=== PATIENT | male | born 1995 | race Caucasian/White ===

== ENCOUNTER 2019-02-16 20:25 | Emergency (ER) | payer OTHER ==
[~2019-02-16] VITALS: Ht 185.4 cm; Wt 74.8 kg
[2019-02-16 20:45] VITALS: BP 130/86
--- NOTE | 2019-02-16 20:48 | NUR ---
PT AMBULATED TO LOBBY.
--- NOTE | 2019-02-16 21:07 | NUR ---
pt to er bed 9 with steady gait
--- NOTE | 2019-02-16 21:20 | NUR ---
PT CAME TO ER FOR INGROWN HAIR IN PUBIC AREA X 3 DAYS. AREA IS SWOLLEN AND RED. PT DENIES ANY PAIN, PAIN LEVEL 0/10 JUST ITCHING. NKA. NO MED HX. SAFETY MEASURES IN PLACE. PA EVALUATED PT.
--- NOTE | 2019-02-16 21:48 | NUR ---
Patient discharged with v/s stable. Written and verbal after care instructions given and explained. Educated for pt not to shave area with ingrown hair and take antibiotics as prescribed. Patient alert, oriented and verbalized understanding of instructions. Ambulatory with steady gait. All questions addressed prior to discharge. ID band removed. Patient advised to follow up with PMD. Rx of KEFLEX AND IBUPROFEN WAS given. Patient educated on indication of medication including possible reaction and side effects. Opportunity to ask questions provided and answered.
[2019-02-16 21:49] VITALS: BP 130/86
== END 2019-02-16 21:48 | disposition home or self-care (01) ==
LOC: MED 20:25
DX: L03.314 Cellulitis of groin (principal)
CPT/HCPCS: 99283

== ENCOUNTER 2019-04-25 18:22 | Emergency (ER) | payer OTHER ==
[~2019-04-25] VITALS: Ht 182.9 cm; Wt 77.1 kg
[2019-04-25 18:24] VITALS: BP 129/62
--- NOTE | 2019-04-25 18:31 | NUR ---
WAIT AT LOBBY.
--- NOTE | 2019-04-25 18:49 | NUR ---
PT AMBULATED TO ER BED 09
--- NOTE | 2019-04-25 18:59 | NUR ---
23/M C/O RT TEMPORAL HEAD PAIN & DIZZINESS X TODAY. DENIES RECENT TRAUMA. STATES TRAUMA TO HEAD WITH LOC 1 YEAR AGO AND HAS BEEN HAVING INT HEADACHES SINCE THEN. HAS NOT HAD HEAD IMAGING DONE. CURRENTLY THE PAIN IS AT RT TEMPORAL REGION, THROBBING. DENIES N/V, PHOTOPHOBIA, PHONOPHOBIA. STATES DIZZINESS; FSBS 83 AT THIS TIME. PERRL. HAND SAP BW DEVELOPER 5/5 BILATERALLY. FULL CLEAR SPEECH. NAD BEDRAILS UP X1; ERMD TO EVAL PATIENT. MED HX: DENIES
--- NOTE | 2019-04-25 19:06 | NUR ---
REPORT TO [facility] [address]. TRANSFER OF CARE AT THIS TIME.
--- NOTE | 2019-04-25 19:46 | NUR ---
Dr. Sewell examining patient.
--- NOTE | 2019-04-25 19:55 | NUR ---
PT TAKEN TO CT
--- NOTE | 2019-04-25 20:06 | NUR ---
PT RETURN FROM CT
[2019-04-25 20:42] VITALS: BP 121/62
--- NOTE | 2019-04-25 20:42 | NUR ---
PT DISCHARGED BY DR CELIS PROVIDED WITH PAPERWORK. NO RX PROVIDED. EDUCATED PT REGARDING D/C DIAGNOSIS AND INSTRUCTIONS. PT VERBALIZED UNDERSTANDING OF TEACHING. TOLD PT TO FOLLOW UP WITH PCP AND WHEN TO RETURN TO ED. PT VSS. ALL QUESTIONS ANSWERED.
== END 2019-04-25 20:42 | disposition home or self-care (01) ==
LOC: MED 18:22
DX: G44.209 Tension-type headache, unspecified, not intractable (principal); F12.90 Cannabis use, unspecified, uncomplicated
CPT/HCPCS: 70450; 82948; 99284

== ENCOUNTER 2019-06-12 17:31 | Emergency (ER) | payer OTHER ==
[~2019-06-12] VITALS: Ht 185.4 cm; Wt 79.4 kg
[2019-06-12 17:53] VITALS: BP 129/68
--- NOTE | 2019-06-12 17:57 | NUR ---
PT PLACED IN LOBBY, AMBULATED
--- NOTE | 2019-06-12 19:41 | NUR ---
PT AMBULATED TO BED
--- NOTE | 2019-06-12 19:55 | NUR ---
PT 23 Y/O MALE BIB SELF AND C/O INGROWN HAIR ABOVE PUBIC AREA. PT STAES HE HAD SAME INGROWN HAIR X 2 MONTHS AGO AND IT RETURNED X 2 DAYS AGO. PT HAS C/O 8/10 PAIN IN UPPER PUBIC AREA. PT RESTING IN BED CALM. BED IN LOWEST POSITION AND LOCKED IN PLACE.
[2019-06-12] MEDS ORDERED: VANCOMYCIN 1,000 MG in DEXTROSE 5% 250 ML IV ONE (21:05)
--- NOTE | 2019-06-12 21:05 | NUR ---
Note anita in EDM - 06/12/19 at 2325 by [email or web address] PT RESTING IN BED. NO C/O PAIN AT THIS TIME. MOTHER AT BEDSIDE. MEDICATION RUNNING OVER IV PUMP. VSS AND WILL CONTINUE TO MONITOR.
[2019-06-12] MEDS ORDERED: VANCOMYCIN 1,000 MG VIAL ONE (21:22)
--- NOTE | 2019-06-12 22:25 | NUR ---
PT RESTING AT BEDSIDE, IV MEDS STILL INFUCING. IV SITE IS PATENT AND INTACT, NO SWELLING OR REDNESS NOTED. MOTHER AT BEDSIDE.
[2019-06-12 23:21] VITALS: BP 129/68
--- NOTE | 2019-06-12 23:22 | NUR ---
Patient discharged with v/s stable. Written and verbal after care instructions given and explained. Patient alert, oriented and verbalized understanding of instructions. Ambulatory with steady gait. All questions addressed prior to discharge. ID band removed. Patient advised to follow up with PMD. Rx of KEFLEX, BACTRIM given. Patient educated on indication of medication including possible reaction and side effects. Opportunity to ask questions provided and answered.
--- NOTE | 2019-06-12 23:25 | NUR ---
PT RESTING IN BED. NO C/O PAIN AT THIS TIME. MOTHER AT BEDSIDE. VSS AND WILL CONTINUE TO MONITOR.
== END 2019-06-12 23:22 | disposition home or self-care (01) ==
LOC: MED 17:31
DX: R21 Rash and other nonspecific skin eruption (principal); R10.31 Right lower quadrant pain
CPT/HCPCS: 96365; 99283; J3370

== ENCOUNTER 2023-05-12 10:29 | Emergency (ER) | payer OTHER ==
[~2023-05-12] VITALS: Ht 182.9 cm; Wt 83.1 kg
[2023-05-12 10:39] VITALS: BP 120/70; PULSE 54; RESP 20; TEMP 98.2; O2SAT 99
[2023-05-12 12:37] VITALS: BP 120/70; PULSE 54; RESP 20; TEMP 98.1; O2SAT 99
== END 2023-05-12 12:37 | disposition home or self-care (01) ==
LOC: MED 10:29
DX: R07.9 Chest pain, unspecified (principal)
CPT/HCPCS: 71045; 93005; 99283